=== PATIENT | female | born 2000 | race African-American/Black ===

== ENCOUNTER 2022-10-13 06:41 | Emergency (ER) | payer OTHER, MEDICAID ==
[~2022-10-13] VITALS: Ht 177.8 cm; Wt 77.0 kg
[2022-10-13] MEDS ORDERED: MORPHINE SULFATE 4 MG/ML CPJ (NOT FOR IM USE) IV ONE (06:45)
[2022-10-13 07:30] LABS: BASOPHILS % 0.5 % (0.0-2.0); EOSINOPHILS % 1.6 % (0.0-5.0); HEMATOCRIT. 36.8 % (36.0-48.0); HEMOGLOBIN. 12.5 g/dL (12.0-16.0); LYMPHOCYTES % 30.2 % (20.0-50.0); MEAN CORPUSCULAR HEMOGLOBIN 32.3 pg (28.0-32.0); MEAN CORPUSCULAR VOLUME 94.9 fL (81.0-99.0); MEAN PLATELET VOLUME 8.3 fl (7.4-10.4); MONOCYTES % 5.2 % (2.0-8.0); NEUTROPHILS % 62.5 % (40.0-76.0); PLATELET 278 x1000/uL (130-400); RED BLOOD CELL COUNT 3.88 mill/uL (4.2-5.4); RED CELL DISTRIBUTION WIDTH 13.5 % (11.6-14.6)
[2022-10-13 07:36] LABS: CHLORIDE 109 mEq/L (98-107)
[2022-10-13 07:50] LABS: B-HCG QUANTITATIVE < 1 mIU/mL (<3)
[2022-10-13] MEDS ORDERED: T3 PO (08:44)
[2022-10-13] MEDS ORDERED: IBUP-2028 PO (08:44)
[2022-10-13 09:00] VITALS: BP 132/76
[2022-10-13 09:20] LABS: CLARITY URINE CLEAR (CLEAR); COLOR URINE YELLOW (YELLOW); KETONES URINE 1+ (NEGATIVE); LEUKOCYTE ESTERASE URINE NEGATIVE (NEGATIVE); NITRITE URINE NEGATIVE (NEGATIVE); OCCULT BLOOD URINE NEGATIVE (NEGATIVE); PROTEIN URINE NEGATIVE (NEGATIVE); SPECIFIC GRAVITY URINE 1.026 (1.005-1.030); UROBILINOGEN URINE 0.2 E.U./dL (0.2-1.0)
== END 2022-10-13 09:46 | disposition home or self-care (01) ==
LOC: ER 07:07
DX: N83.201 Unspecified ovarian cyst, right side (principal)
CPT/HCPCS: 36415; 76830; 76856; 80053; 81003; 81025; 84702; 85025; 86850; 86900; 86901; 96374; 99285; J2270; Z7610

== ENCOUNTER 2023-09-01 10:28 | Emergency (ER) | payer OTHER, MEDICAID ==
[~2023-09-01] VITALS: Ht 170.2 cm; Wt 82.0 kg
[~2023-09-01 10:28] MED LIST: IBUP-2028 PO; T3 PO
[2023-09-01 10:35] VITALS: BP 115/87; PULSE 78; RESP 18; O2SAT 99
[2023-09-01 10:45] VITALS: TEMP 98
[2023-09-01] MEDS: ACETAMINOPHEN 325MG TABLET PO ONE (10:45)
== END 2023-09-01 12:24 | disposition home or self-care (01) ==
LOC: ER 12:08
DX: R56.9 Unspecified convulsions (principal)
CPT/HCPCS: 99283